=== PATIENT | female | born 1960 | race Two or more races ===

== ENCOUNTER 2023-08-06 07:37 | Emergency (ER) | payer OTHER ==
[~2023-08-06] VITALS: Ht 162.6 cm; Wt 65.1 kg
[2023-08-06 08:02] VITALS: BP 182/85; PULSE 84; RESP 20; TEMP 97.9; O2SAT 96
[2023-08-06] MEDS ORDERED: HYDROcodone-ACET 5/325MG TAB PO ONE (08:30)
[2023-08-06] MEDS ORDERED: MET500T PO (08:49)
[2023-08-06] MEDS ORDERED: ACET-1080 PO (08:49)
== END 2023-08-06 09:42 | disposition home or self-care (01) ==
LOC: ER 07:37 → EDBD 07:37 → ER 09:42
DX: S16.1XXA Strain of muscle, fascia and tendon at neck level, initial encounter (principal); S00.03XA Contusion of scalp, initial encounter; E11.9 Type 2 diabetes mellitus without complications; Z79.899 Other long term (current) drug therapy; W01.0XXA Fall on same level from slipping, tripping and stumbling without subsequent striking against object, initial encounter; Y93.89 Activity, other specified; Y92.89 Other specified places as the place of occurrence of the external cause; Y99.0 Civilian activity done for income or pay
CPT/HCPCS: 70450; 72125